=== PATIENT | male | born 1955 | race Caucasian/White ===

== ENCOUNTER 2018-03-16 21:00 | Emergency (ER) | payer MEDICARE, MEDICAID ==
[~2018-03-16] VITALS: Ht 152.4 cm; Wt 94.5 kg
[~2018-03-16 21:00] MED LIST: ASPI-691 PO
[2018-03-16] MEDS ORDERED: LIDOCAINE-MPF 1%, 2ML ONE (21:57)
[2018-03-16] MEDS ORDERED: DIPH,PERTUSS(ACELL),TET VAC/PF 0.5 ML IM-VACC ONE ×2 (22:00→22:28)
[2018-03-16] MEDS ORDERED: LIDOCAINE-MPF 1%, 2ML INFIL ONE (22:00)
[2018-03-16 22:56] VITALS: BP 113/77
== END 2018-03-16 23:07 | disposition home or self-care (01) ==
LOC: ED 22:45
DX: S61.221A Laceration with foreign body of left index finger without damage to nail, initial encounter (principal); W45.8XXA Other foreign body or object entering through skin, initial encounter; Y93.89 Activity, other specified; Y92.099 Unspecified place in other non-institutional residence as the place of occurrence of the external cause; Y99.8 Other external cause status
CPT/HCPCS: 12041; 90471; 90715; 99284